=== PATIENT | female | born 1965 | race Native Hawaiian/Other Pacific Islander ===

== ENCOUNTER 2022-01-26 12:22 | Emergency (ER) | payer OTHER ==
[~2022-01-26] VITALS: Ht 167.6 cm; Wt 62.1 kg
[2022-01-26 12:32] VITALS: TEMP 97.7
[2022-01-26 13:42] VITALS: BP 116/74
== END 2022-01-26 13:45 | disposition home or self-care (01) ==
LOC: ED 12:22
DX: R51.9 Headache, unspecified (principal); J06.9 Acute upper respiratory infection, unspecified; Z11.52 Encounter for screening for COVID-19
CPT/HCPCS: 87502; 87635; 87651; 93005; 96372; 99283; J1885; U0003

== ENCOUNTER 2022-05-19 12:11 | Emergency (ER) | payer OTHER ==
[2022-05-19 13:53] LABS: PLATELET COUNT 164 K/uL (152-353)
[2022-05-19 14:07] LABS: POTASSIUM 3.9 mmol/L (3.6-5.2)
== END 2022-05-19 15:20 | disposition home or self-care (01) ==
LOC: ED 12:11
PROVIDERS: Emergency Medicine Emergency Medical Services
DX: N20.1 Calculus of ureter (principal); Z87.442 Personal history of urinary calculi
CPT/HCPCS: 36415; 80048; 80307; 81000; 85027; 96360; 96374; 96375; 99284

== ENCOUNTER 2022-05-21 19:41 | Emergency (ER) | payer OTHER ==
[~2022-05-21] VITALS: Ht 167.6 cm; Wt 59.0 kg
[2022-05-21 23:35] VITALS: BP 156/72; TEMP 98.1
== END 2022-05-21 23:40 | disposition home or self-care (01) ==
LOC: ED 19:41
DX: S16.1XXA Strain of muscle, fascia and tendon at neck level, initial encounter (principal); M25.561 Pain in right knee; V49.50XA Passenger injured in collision with unspecified motor vehicles in traffic accident, initial encounter; Y92.481 Parking lot as the place of occurrence of the external cause
CPT/HCPCS: 96374; 99284; J1885

== ENCOUNTER 2022-09-07 08:40 | Emergency (ER) | payer OTHER ==
[~2022-09-07] VITALS: Ht 167.6 cm; Wt 61.2 kg
[2022-09-07 08:43] VITALS: TEMP 98.4
[2022-09-07 09:29] LABS: PLATELET COUNT 225 K/uL (152-353)
[2022-09-07 09:36] LABS: POTASSIUM 4.1 mmol/L (3.6-5.2)
[2022-09-07 10:43] VITALS: BP 100/57
== END 2022-09-07 10:45 | disposition home or self-care (01) ==
LOC: ED 08:40
PROVIDERS: Emergency Medicine
DX: G43.909 Migraine, unspecified, not intractable, without status migrainosus (principal)
CPT/HCPCS: 80048; 85027; 96372; 96374; 96375; 99284; J1200; J1885; J2550; J3030

== ENCOUNTER 2022-12-21 11:20 | Emergency (ER) | payer OTHER ==
[~2022-12-21] VITALS: Ht 167.6 cm; Wt 59.0 kg
[2022-12-21 12:24] LABS: PLATELET COUNT 177 K/uL (152-353)
[2022-12-21 12:30] LABS: POTASSIUM 4.7 mmol/L (3.6-5.2)
[2022-12-21 16:40] VITALS: BP 116/70; TEMP 97.2
== END 2022-12-21 16:40 | disposition home or self-care (01) ==
LOC: ED 11:20
PROVIDERS: Family Medicine
DX: G43.909 Migraine, unspecified, not intractable, without status migrainosus (principal)
CPT/HCPCS: 36415; 80048; 81002; 85027; 96361; 96374; 96375; 99284; J1100; J1200; J1885

== ENCOUNTER 2023-02-17 13:25 | Emergency (ER) | payer OTHER ==
[~2023-02-17] VITALS: Ht 167.6 cm; Wt 59.0 kg
[2023-02-17 13:30] VITALS: BP 138/69; TEMP 97
[2023-02-17 14:04] LABS: PLATELET COUNT 154 K/uL (152-353)
[2023-02-17 14:08] LABS: POTASSIUM 3.6 mmol/L (3.6-5.2)
== END 2023-02-17 16:10 | disposition still patient (30) ==
LOC: ED 13:25
PROVIDERS: Family Medicine
DX: N20.0 Calculus of kidney (principal); R10.9 Unspecified abdominal pain
CPT/HCPCS: 36415; 80053; 81000; 83690; 85027; 96361; 96374; 96375; 99284; J1885; J2405

== ENCOUNTER 2023-09-02 07:45 | Emergency (ER) | payer BC ==
[~2023-09-02] VITALS: Ht 167.6 cm; Wt 62.1 kg
[2023-09-02 07:52] VITALS: TEMP 97.8
[2023-09-02] MEDS ORDERED: DEXAMETHASONE SODIUM PHOSPHATE 4 MG INJ INJ ONE (08:06)
[2023-09-02] MEDS ORDERED: METOCLOPRAMIDE HCL 10 MG ONE ×2 (08:06→08:09)
[2023-09-02] MEDS ORDERED: SODIUM CHLORIDE 0.9% 1,000 ML IV ONE ×2 (08:06→08:08)
[2023-09-02] MEDS ORDERED: DIPHENHYDRAMINE HCL 50 MG INJ INJ ONE (08:07)
[2023-09-02] MEDS ORDERED: DEXAMETHASONE SODIUM PHOSPHATE 4 MG INJ ONE (08:09)
[2023-09-02] MEDS ORDERED: DIPHENHYDRAMINE HCL 50 MG INJ ONE (08:09)
[2023-09-02 08:29] LABS: PLATELET COUNT 159 K/uL (152-353)
[2023-09-02 08:32] LABS: POTASSIUM 4.2 mmol/L (3.6-5.2)
[2023-09-02] MEDS ORDERED: TORADOL 30MG/ML INJ INJ ONE (08:47)
[2023-09-02] MEDS ORDERED: TORADOL 30MG/ML INJ ONE (08:55)
[2023-09-02 09:41] VITALS: BP 120/78
== END 2023-09-02 09:44 | disposition home or self-care (01) ==
LOC: ED 07:45
PROVIDERS: Internal Medicine Endocrinology, Diabetes & Metabolism
DX: G43.909 Migraine, unspecified, not intractable, without status migrainosus (principal)
CPT/HCPCS: 36415; 80053; 85027; 96361; 96374; 96375; 99284; J1100; J1200; J1885; J2765